=== PATIENT | male | born 1965 | race American Indian/Alaskan Native ===

== ENCOUNTER 2018-05-26 21:13 | Emergency (ER) | payer OTHER ==
[2018-05-26 21:13] VITALS: BMI 32.8
[2018-05-26 21:36] VITALS: PULSE 68
--- NOTE | 2018-05-26 22:39 | C.PDOC ---
History Of Present Illness 53 year old male presents to the ED c/o left parasternal chest pain that is digitally reproducible a week ago. 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 Patient states he lifts a lot of heavy weights. Patient denies injury, fall, trauma, palpitations, SOB, weakness, numbness. Time Seen by Provider: 05/26/18 22:17 Chief Complaint (Nursing): Chest Pain History Per: Patient History/Exam Limitations: no limitations Onset/Duration Of Symptoms: Days Current Symptoms Are (Timing): Still Present Quality: "Pain" Recent travel outside of the [place]: No Additional History Per: Patient Past Medical History Reviewed: Historical Data, Nursing Documentation, Vital Signs Vital Signs: Last Vital Signs Temp 98.7 F 05/26/18 21:31 Pulse 68 05/26/18 21:31 Resp 18 05/26/18 21:31 BP 141/85 05/26/18 21:31 Pulse Ox 99 05/26/18 21:31 - Medical History PMH: CAD Surgical History: CABG, Cholecystectomy Denies: Pacemaker - [facility] Procedures CORONAR ARTERIOGR-2 CATH (10/07/06) LEFT HEART CARDIAC CATH (10/07/06) LT HEART ANGIOCARDIOGRAM (10/07/06) Family History: States: Unknown Family Hx - Social History Hx Tobacco Use: No Hx Alcohol Use: Yes (OCCASSIONAL USE ONLY) Hx Substance Use: Yes - Immunization History Hx Tetanus Toxoid Vaccination: No Hx Influenza Vaccination: No Hx Pneumococcal Vaccination: No Review Of Systems Constitutional: Negative for: Fever, Chills Cardiovascular: Positive for: Chest Pain. Negative for: Palpitations Respiratory: Negative for: Cough, Shortness of Breath Gastrointestinal: Negative for: Nausea, Vomiting, Abdominal Pain Psych: Negative for: Depression, Suicidal ideation Physical Exam - Physical Exam Appears: Non-toxic, No Acute Distress Skin: Normal Color, Warm, Dry Head: Atraumatic, Normacephalic Eye(s): bilateral: Normal Inspection Oral Mucosa: Moist Neck: Normal ROM, Supple Chest: Symmetrical, Tenderness Cardiovascular: Rhythm Regular, No Murmur Respiratory: Normal Breath Sounds, No Rales, No Rhonchi, No Wheezing Gastrointestinal/Abdominal: Soft, No Tenderness, No Guarding, No Rebound Extremity: Normal ROM, No Tenderness, No Swelling Neurological/Psych: Oriented x3, Normal Speech, Normal Cognition Gait: Steady ED Course And Treatment ECG: Interpreted By Me ECG Rhythm: Sinus Rhythm ECG Interpretation: Normal Rate From EC (BPM) O2 Sat by Pulse Oximetry: 99 (ON RA) Pulse Ox Interpretation: Normal Medical Decision Making Medical Decision Making: Costochondritis digitally and positionally reproducable anterior chest wall discomfort, normal ekg, unlimited exercise tolerance. anxiety Disposition Doctor Will See Patient In The: Office Counseled Patient/Family Regarding: Studies Performed, Diagnosis - Disposition Referrals: Kathy Coyne MD [Primary Care Provider] - Disposition: HOME/ ROUTINE Disposition Time: 22:40 Condition: GOOD Additional Instructions: motrin/ice packs for anterior chest wall discomfort Normal exercise and work routine Instructions: Costochondritis Forms: [facility] ([place]) - Clinical Impression Clinical Impression: Chest wall discomfort - Scribe Statement The provider has reviewed the documentation as recorded by the Scribe Man Wolfe All medical record entries made by the Scribe were at my direction and personally dictated by me. I have reviewed the chart and agree that the record accurately reflects my personal performance of the history, physical exam, medical decision making, and the department course for this patient. I have also personally directed, reviewed, and agree with the discharge instructions and disposition.
[2018-05-26 23:35] VITALS: BP 134/78; RESP 14; TEMP 98.3
[2018-05-27 01:09] VITALS: O2SAT 99
--- NOTE | 2018-05-29 20:58 | CARD ---
APPROVED REPORT Date of service: 05/26/2018 EKG Measurement Heart [id number] <Conclusion> Normal sinus rhythm Nonspecific T wave abnormality Abnormal ECG
== END 2018-05-26 23:00 | disposition home or self-care (01) ==
LOC: SUPCPDRO 21:13 → C.ER 21:13
DX: R07.89 Other chest pain (principal); I25.10 Atherosclerotic heart disease of native coronary artery without angina pectoris; Z95.1 Presence of aortocoronary bypass graft